=== PATIENT | female | born 1950 | race Hispanic/Latino ===

== ENCOUNTER 2019-05-02 08:17 | Day surgery (SDC) | payer OTHER ==
[2019-04-25 14:46] LABS: Absolute Lymphocytes (CBC) 2.6 K/uL (0.7-4.9); Basophils % 0.6 % (0-1.3); Hematocrit 40.8 % (36.0-45.0); Lymphocytes % 27.2 % (15.3-44.8); MPV 9.1 fL (7.6-11.3)
[2019-04-25 14:57] LABS: Potassium 3.9 mmol/L (3.5-5.1)
--- NOTE | 2019-04-25 15:13 | RAD REPORT ---
EXAM DESCRIPTION: RAD - Chest Pa And Lat (2 Views) - 04/25/2019 2:49 pm CLINICAL HISTORY: pre op Chest pain. COMPARISON: Follow Up Axilla Only dated 04/22/2019 FINDINGS: The lungs are clear. The heart is normal in size. No displaced fractures. IMPRESSION: No acute or concerning finding suspected.
--- NOTE | 2019-04-26 10:41 | EKG ---
Test Date: 2019-04-25 Test Time: 14:31:03 Laminate Floor Installer: KAHLIL MEASUREMENT RESULTS: Intervals: Rate: 59 PA: 140 QRSD: 76 QT: 402 QTc: 397 [place]: P: 57 PA: 140 QRS: 23 T: 23 INTERPRETIVE STATEMENTS: Sinus bradycardia Otherwise normal ECG No previous ECG available for comparison Electronically Signed On 04-26-19 10:38:37 CDT by Dev Jarrett
[2019-05-02] MEDS ORDERED: Ringers Lactate 1,000 ML IV ONE (08:46)
[2019-05-02] MEDS ORDERED: CEFAZOLIN/SWI 1gm 1 GM/10 ML SYR ONE (08:46)
[2019-05-02] MEDS ORDERED: PROPOFOL 200 MG/20 ML VIAL IV ONE (09:10)
[2019-05-02] MEDS ORDERED: MIDAZOLAM HCL 2 MG/2 ML INJ ONE (09:10)
[2019-05-02] MEDS ORDERED: FENTANYL CITR 100 MCG/2 ML ONE (09:11)
[2019-05-02] MEDS ORDERED: LIDOCAINE 2% MPF 5 ML VIAL ONE (09:11)
[2019-05-02] MEDS ORDERED: ONDANSETRON 4 MG/2 ML VIAL ONE (09:14)
--- NOTE | 2019-05-02 11:40 | OP ---
Date of Procedure: 05/02/2019 Surgeon: Keaton Chappell MD [employer] Machine Operator: KASSIE Lobo. Preoperative Diagnosis: Left axillary mass. Postoperative Diagnosis: Left axillary mass. Procedure: Wide excision, left axillary mass, 4 x 2 cm with layered closure. Estimated Blood Loss: Minimal. Specimen: Left axillary mass. Findings: Sebaceous cyst. Anesthesia: General. Complications: None. Disposition: The patient tolerated the procedure in stable condition, taken to Recovery in good gene ral condition. Procedure In Detail: The patient was brought to the OR and placed in supine position. General anest hesia was begun. The patient was prepped and draped in usual sterile fashion. Marcaine 0.5% was inf iltrated locally. A 15-blade was used to make a 4 x 2 cm incision to excise this 2.[address], down through the deep subcutaneous tissues and sent to Pathology as specimen. Wound irrigated. Bleeding controlled with cautery. A 2-0 chromic used to approximate subcu tissues and 4-0 nylon used to close the skin. Sterile dressing was applied. The patient was awakened and taken to Recovery in good general condition. Discharge Note: The patient will go to Day Surgery and home when stable. Disposition: Home. Condition: Stable. Discharge Instructions: Resume home medications and diet and activity as tolerated. No heavy liftin g. Remove outer dressing in 2 days. Shower. Keep wound clean and dry. Follow up in my office 1 anton[address]. Call for appointment. Tylenol No. 3 one tablet p.o. q.4 p.r.n. pain, Keflex 500 mg p.o. q.6 gwen HERNÁNDEZ/PATSY Voice ID: [id number] Report ID: [id number]
== END 2019-05-02 11:20 | disposition home or self-care (01) ==
LOC: OR 08:17
PROVIDERS: ATTEND Surgery
PROC: 0JBF0ZX Excision of Left Upper Arm Subcutaneous Tissue and Fascia, Open Approach, Diagnostic (ICD-10-PCS; principal; 2019-05-02 09:30)
DX: L72.0 Epidermal cyst (principal); E11.9 Type 2 diabetes mellitus without complications; I10 Essential (primary) hypertension; Z79.82 Long term (current) use of aspirin; Z79.899 Other long term (current) drug therapy
CPT/HCPCS: 36415; 71046; 80048; 85025; 88304; 88305; 93005; J0690; J2250; J2405; J2704; J3010